=== PATIENT | female | born 1980 | race Caucasian/White ===

== ENCOUNTER 2018-04-22 07:03 | Inpatient (IN) | payer BC ==
[~2018-04-22 07:03] MED LIST: Acetaminophen 500 MG Tab PO ONE; Celecoxib 200 MG Cap PO ONE; Gabapentin 300 MG Cap PO ONE; Scopolamine 1.5 MG Transdermal Patch TOP ONE; cefOXitin 2 GM Vial ONE; cefOXitin 2 GM in Sodium Chloride 0.9% 50 ML IV ONE
[2018-04-22] MEDS ORDERED: Rocuronium 50 MG/5 ML Vial ONE ×2 (07:51→11:13)
[2018-04-22] MEDS ORDERED: Ondansetron 4 MG/2 ML SDV ONE (07:51)
[2018-04-22] MEDS ORDERED: Propofol 200 MG/20 ML SDV ONE (07:51)
[2018-04-22] MEDS ORDERED: Succinylcholine 200 MG/10 ML MDV ONE (07:51)
[2018-04-22] MEDS ORDERED: Neostigmine Methylsulfate 1 MG/ML 5 ML Syringe ONE (07:51)
[2018-04-22] MEDS ORDERED: Dexamethasone 4 MG/ML SDV ONE (07:51)
[2018-04-22] MEDS ORDERED: Glycopyrrolate 0.2 MG/ML 5 ML MDV ONE (07:51)
[2018-04-22] MEDS ORDERED: Dextrose 5%-Lactated Ringers 1,000 ML IV SCH ×2 (08:00→14:00)
[2018-04-22] MEDS ORDERED: Lidocaine 2% 100 MG/5 ML Syringe IVPUSH ONE (09:00)
[2018-04-22] MEDS ORDERED: Ropivacaine 52 ML, Dexamethasone 8 MG, EPINEPHrine 0.4 MG, Sodium Chloride 0.9% 25.6 ML NERVRT SCH ×4 (09:00)
[2018-04-22] MEDS ORDERED: Ketamine 500 MG/5 ML MDV IV SCH (09:00)
[2018-04-22] MEDS ORDERED: Naloxone 0.4 MG/ML SDV ONE (12:27)
[2018-04-22] MEDS ORDERED: Insulin Aspart 100 Units/ML 3 ML Pen SUBCUT PRN (14:00)
[2018-04-22] MEDS ORDERED: 50% Dextrose in Water 50 ML Syringe IVPUSH PRN (14:00)
[2018-04-22] MEDS ORDERED: Metoclopramide 10 MG/2 ML SDV IVPUSH PRN (14:00)
[2018-04-22] MEDS ORDERED: Labetalol 20 MG/4 ML Syringe IVPUSH PRN (14:00)
[2018-04-22] MEDS ORDERED: Ondansetron 4 MG/2 ML SDV IVPUSH PRN (14:00)
[2018-04-22] MEDS ORDERED: hydrOXYzine HCl 100 MG/2 ML SDV IM PRN (14:00)
[2018-04-22] MEDS ORDERED: Glucagon,Human Recombinant 1 MG Vial IM PRN (14:00)
[2018-04-22] MEDS ORDERED: diphenhydrAMINE 50 MG/ML SDV IVPUSH PRN (14:00)
[2018-04-22] MEDS: Gabapentin 250 MG/5 ML Solution ML 470 ML Bottle PO SCH ×2 (14:52→20:12)
[2018-04-22] MEDS: Lidocaine 0.4%/D5W 2 GM/500 ML BAG IV SCH (14:52)
[2018-04-22] MEDS: CHECK SCOPALAMINE PATCH TOP SCH (14:53)
[2018-04-22] MEDS: Acetaminophen Soln 650 MG/20.3 ML UD Cup PO SCH ×2 (14:55→20:12)
[2018-04-22] MEDS: Pantoprazole 40 MG Vial IVPUSH SCH (14:55)
[2018-04-22] MEDS ORDERED: MVI, Adult with Vitamin K 10 ML, Thiamine 200 MG, Chromium/Copper/Mang/Selen/Zn 1 ML in... IV SCH ×4 (16:00)
[2018-04-22] MEDS: Heparin Sodium 5,000 Units/ML Vial SUBCUT SCH (18:13)
[2018-04-23] MEDS: Acetaminophen Soln 650 MG/20.3 ML UD Cup PO SCH ×4 (02:45→21:00)
[2018-04-23] MEDS: Lidocaine 0.4%/D5W 2 GM/500 ML BAG IV SCH (03:15)
[2018-04-23] MEDS ORDERED: Iohexol 647 MG/ML 50 ML SDV PO STA (03:16)
[2018-04-23] MEDS: Heparin Sodium 5,000 Units/ML Vial SUBCUT SCH ×2 (07:33→21:01)
[2018-04-23] MEDS: Gabapentin 250 MG/5 ML Solution ML 470 ML Bottle PO SCH ×3 (09:06→21:02)
[2018-04-23] MEDS: SCOPOLAMINE PATCH CHECK TOP SCH (09:17)
[2018-04-23] MEDS: CHECK SCOPALAMINE PATCH TOP SCH (09:17)
[2018-04-23] MEDS ORDERED: Dextrose 5%-Lactated Ringers 1,000 ML IV SCH (09:30)
[2018-04-23] MEDS: Celecoxib 200 MG Cap PO SCH (09:42)
[2018-04-23] MEDS: Lactated Ringers 1,000 ML IV SCH ×2 (10:04→15:59)
[2018-04-23] MEDS: Pantoprazole 40 MG Vial IVPUSH SCH (13:33)
[2018-04-23] MEDS ORDERED: Melatonin 3 MG Tab PO SCH (21:00)
[2018-04-24] MEDS: Acetaminophen Soln 650 MG/20.3 ML UD Cup PO SCH ×2 (02:02→07:22)
[2018-04-24] MEDS: Heparin Sodium 5,000 Units/ML Vial SUBCUT SCH (07:21)
[2018-04-24] MEDS: Celecoxib 200 MG Cap PO SCH (07:21)
[2018-04-24] MEDS ORDERED: Cyanocobalamin (Vitamin B12) 1,000 MCG/ML SDV IM ONE (09:00)
[2018-04-24] MEDS: SCOPOLAMINE PATCH CHECK TOP SCH (09:02)
[2018-04-24] MEDS: CHECK SCOPALAMINE PATCH TOP SCH (09:02)
[2018-04-24] MEDS: Gabapentin 250 MG/5 ML Solution ML 470 ML Bottle PO SCH (09:02)
[2018-04-24] MEDS ORDERED: Magnesium Hydroxide 400 MG/5 ML Susp 30 ML Cup PO ONE (10:30)
--- NOTE | 2018-04-25 08:41 | CR ---
UGI wo KUB HISTORY: eval R -Y GBP FINDINGS: After administration of oral contrast, upright views were obtained. Post operative changes gastric bypass. Surgical drains in place. No evidence for leak. Contrast passes freely into proximal small bowel loops. IMPRESSION: No evidence for leak or obstruction.
--- NOTE | 2018-04-25 08:56 | PN ---
DATE OF SERVICE: 04/23/2018 The patient has been afebrile with stable vital signs, status post gastric bypass yesterday, along with repair of diaphragmatic hernia with removal of mediastinal lipoma, liver biopsy, as well as excision of a small liver nodule. Clinically, she has done well overnight. She appears most likely to have some degree of diabetes, but her blood sugars have been good. She also began metformin, and we will leave that off for today. We will continue the Accu- Cheks for another 24 hours and see how things go in that regard. Otherwise, begin a step-2 diet today and may be ready for discharge home tomorrow. Her nonnarcotic pain management is working satisfactorily. Raza Maya MD /[id number]
--- NOTE | 2018-04-25 09:30 | DISCH ---
FINAL DIAGNOSES: 1. Morbid obesity. 2. Hepatomegaly. 3. Nodule over anterior surface of the left lobe of the liver. 4. Nodule over midportion of lesser curvature of stomach, possibly a gastrointestinal stromal tumor. 5. Diaphragmatic hernia. 6. Mediastinal lipoma. 7. Pre-diabetes or possible type 2 diabetes, on oral agents. PROCEDURES: Done on 04/22/2018: 1. Laparoscopic Vitaly-en-Y gastric bypass with long limb gastroenterostomy. 2. Avtar-Cut needle liver biopsy. 3. Wedge biopsy of left lobe of liver, excising nodule at that location. 4. Excision of a nodule on surface of the lesser curvature of stomach. 5. Repair of paraesophageal diaphragmatic hernia with excision of mediastinal lipoma. HOSPITAL COURSE: This is a 37-year-old presenting with longstanding morbid obesity and increasingly significant comorbidities. After preoperative evaluation and discussion, she wished to proceed with a gastric bypass procedure. This was done on the date of procedure with the above-noted findings being identified currently. All the nodular tissue removed in all likelihood would be benign. Postoperatively, the patient's blood sugars have been very good with being off metformin. Over the last 24 hours, blood sugars have ranged from 92 to 118, these being nonfasting sugars. It is notable, while on metformin, preoperative hemoglobin A1c was 5.8. The patient will be discharged home at this point, the Tylenol and Celebrex seem to be holding her pain well, and she is tolerating a step-2 diet without difficulty. Medications on discharge would include Celebrex and melatonin. We will have her hold the metformin. Blood sugars are good enough that I do not think these need to be tested at this point postoperatively. Hold the MVI, calcium, probiotic medications until after the first appointment. She will be following up with Margaret Sofia at [facility] in [place] on 05/03/2018.
--- NOTE | 2018-04-26 11:35 | OR ---
DATE OF PROCEDURE: 04/22/2018 PREOPERATIVE DIAGNOSIS: Morbid obesity. POSTOPERATIVE DIAGNOSES: 1. Morbid obesity. 2. Marked hepatomegaly. 3. Nodular lesion over the anterior aspect of the left lobe of the liver. 4. Nodular lesion over midportion of the lesser curvature of the stomach. 5. Paraesophageal diaphragmatic hernia. 6. Mediastinal lipoma. OPERATIVE PROCEDURES: Diagnostic laparoscopy with: A. Laparoscopic Vitaly-en-Y gastric bypass with long limb gastroenterostomy (90868). B. Avtar-Cut needle liver biopsy (43636). C. Wedge biopsy of left lobe of the liver, excising above-noted nodule (68020). D. Excision of nodule on the surface of the lesser curvature of the stomach (48206). E. Repair of paraesophageal diaphragmatic hernia (91443). F. Excision of mediastinal lipoma (72692). ANESTHESIA: General. ASSISTANTS: Margaret Sofia PA-C and DIMA Menard. INDICATION FOR PROCEDURE: This is a 37-year-old presenting with longstanding morbid obesity and increasingly significant comorbidities. After preoperative evaluation and discussion, she wished to proceed with a gastric bypass procedure. Potential risks of the procedure including bleeding, infection, leaks from various GI tract closures, problems with bowel obstruction over time, as well as the possibility of cardiopulmonary, septic, or hemorrhagic complications leading to were discussed, and the patient wishes to proceed. DETAILS OF THE PROCEDURE: The patient was taken to the operating room and placed in a supine position. After general endotracheal anesthesia was induced, she was converted to a lithotomy position and the abdomen prepped and draped. An orogastric tube was also then placed. At 15 cm inferior and 5 cm left of xiphoid process, a transverse incision was made. The peritoneal cavity was entered under direct vision with an Optiview trocar inflated to 15 mmHg pressure with CO2. Laparoscope was then reinserted. No underlying trocar insertion site injuries were seen. Following this, bilateral subcostal transversus abdominis plane blocks were placed with direct visualization of the needle in the correct location and injection of the standard solution bilaterally. Following this, 5 additional trocars were placed across the upper and mid abdomen, and general exploration was undertaken. The patient was noted to have marked hepatomegaly with the liver grossly being quite fatty infiltrated. Avtar-Cut needle biopsies were obtained from the left lobe of the liver. Minimal bleeding from biopsy sites was controlled with electrocautery. The patient was at that point noted also to have a white nodular lesion over this central area of the segment III, i.e., in the lower aspect of the left lobe of the liver. This could be a bile duct hamartoma, but other potential tumor types would be within the differential diagnosis. Given this, this was excised using electrocautery and Harmonic scalpel and the nodule, along with some of the surrounding soft tissues, delivered from the field. The bleeding from that location was easily then controlled. On further examination at this point did also show a nodule in the range of 3 mm on the anterior aspect of the stomach, but more or less along the mid greater curvature of the stomach. This could be consistent with a possible GIST tumor, and this was elevated and excised by means of a LORENZA purple load x2. Attention was now made to formation of the gastric bypass. The omentum was divided in the midline up to the level of the transverse colon. This allowed identification of the small bowel to the ligament of Treitz. Small bowel was traced out 200 cm distal to that point, was divided transversely with a LORENZA stapler. Small bowel was then traced out an additional 150 cm where the [id number] enteroenterostomy was accomplished with internal firing of the Endo-LORENZA 60 mm stapler. The common opening was then closed transversely with the same stapler and angles were anastomosed and mesenteric defect approximated with some 0 Ethibond stitch, along with fibrin sealant. Divided end of the Vitaly limb was then from the mesentery for a few centimeters, which allowed an antecolic position of the Vitaly limb up to the gastroesophageal junction without tension. The liver was then retracted anteriorly. The patient was noted to have a moderate-sized paraesophageal diaphragmatic hernia. This contained some perigastric fat, along with the upper edge of the fundus prolapsing into that area. This was reduced, and the peritoneum overlying it was incised and reflected downward, and an anterior repair of the diaphragmatic hernia was accomplished with 0 Ethibond sutures, reinforced with PTFE pledgets. During the course of the dissection, the mediastinal lipoma was encountered and facilitated more adequate closure. This was excised and sent as a separate specimen. The gastrointestinal balloon catheter was then inflated to 15 mL and pulled up snugly against the EG junction. Gastric wall area over the apex of the balloon was then marked with electrocautery, and balloon catheter deflated and pulled up into the esophagus. The lesser omental tissue adjacent to the gastric cardia was then incised, allowing dissection behind the stomach at that level. Pouch formation was initiated with the LORENZA stapler at the level of the cauterized josé in the gastric cardia and then completed with additional LORENZA staplers up to and through the angle of His. Upon completion of the pouch, both staple lines were noted to be intact. The anvil of a 25 mm EEA stapler was attached to a Vinton sump type tube. The latter was brought down through the mouth and taken out through a small opening in the gastric pouch, allowing the anvil likewise to be pulled down to within the gastric pouch. Divided end of the Vitaly limb was then opened and main body of the EEA stapler passed several centimeters into the lumen of the small bowel, brought up the anvil and united with it, thus creating the gastrojejunostomy. Upon removal of the stapler, double donuts of the mucosa were noted within it. The small bowel was closed off with a vascular staple line. Leak test was accomplished with injection of 120 mL of air in the gastric pouch while submerged with a cefoxitin-containing saline solution. No leaks were identified. One Osmel-Garcia drain was then placed through the left lateral trocar site and positioned adjacent to the gastrojejunostomy and from there up into the splenic fossa. The trocars were then sequentially removed and the peritoneal cavity deflated. The incisions were closed with 4-0 Vicryl skin stitch and then the drain affixed with a 4-0 Vicryl stitch as well. The patient was taken to the recovery room in satisfactory condition. Physician funeral director's assistant, Margaret Sofia, played an essential role in assisting in this case, helping to position the patient, retract structures as needed as well as suturing and cutting sutures when indicated. Her presence improved patient safety and decreased the operative time. Raza Maya MD /[id number]
== END 2018-04-24 10:25 | disposition home or self-care (01) | DRG 405 ==
LOC: JP.SDS 07:03 → JP.MS 09:30 → EDSTATUS 09:30 → MERGE 09:30 → JP.2SS 12:30
PROVIDERS: ADMIT Surgery; ATTEND Surgery
PROC: 0D164ZA Bypass Stomach to Jejunum, Percutaneous Endoscopic Approach (ICD-10-PCS; principal; 2018-04-22)
PROC: 0FB24ZX Excision of Left Lobe Liver, Percutaneous Endoscopic Approach, Diagnostic (ICD-10-PCS; 2018-04-22)
PROC: 0DB64ZZ Excision of Stomach, Percutaneous Endoscopic Approach (ICD-10-PCS; 2018-04-22)
PROC: 0BQT4ZZ Repair Diaphragm, Percutaneous Endoscopic Approach (ICD-10-PCS; 2018-04-22)
PROC: 3E0T3BZ Introduction of Anesthetic Agent into Peripheral Nerves and Plexi, Percutaneous Approach (ICD-10-PCS; 2018-04-22)
PROC: 0WBC4ZX Excision of Mediastinum, Percutaneous Endoscopic Approach, Diagnostic (ICD-10-PCS; 2018-04-22)
PROC: 0FB24ZX Excision of Left Lobe Liver, Percutaneous Endoscopic Approach, Diagnostic (ICD-10-PCS; 2018-04-22)
DX: E66.01 Morbid (severe) obesity due to excess calories (principal); Z68.41 Body mass index [BMI] 40.0-44.9, adult; R16.0 Hepatomegaly, not elsewhere classified; K44.9 Diaphragmatic hernia without obstruction or gangrene; D17.4 Benign lipomatous neoplasm of intrathoracic organs; K76.9 Liver disease, unspecified; K31.9 Disease of stomach and duodenum, unspecified; R73.03 Prediabetes; Z87.891 Personal history of nicotine dependence; H54.7 Unspecified visual loss; F19.21 Other psychoactive substance dependence, in remission; Z86.32 Personal history of gestational diabetes; K76.0 Fatty (change of) liver, not elsewhere classified
CPT/HCPCS: 36415; 74240; 74240-26; 82962; 83735; 84100; 85027; 86850; 86900; 86901; 94762; A9270-GY; C9113; J0171; J0330; J0694; J1100; J1644; J2001; J2405; J2704; J2710; J2795; J3010; J3411; J3420; J7030; J7042; J7050; J7120; Q9967